=== PATIENT | male | born 1965 | race Caucasian/White ===

== ENCOUNTER 2023-08-23 09:31 | Inpatient (IN) ==
[2023-08-23 09:45] LABS: Basophils # (auto) 0.13 K/uL (0.00-0.20); Basophils % (auto) 0.9 %; Eosinophils # (auto) 0.13 K/uL (0.00-0.50); Eosinophils % (auto) 0.9 %; Hematocrit (blood only) 41.1 % (42.0-52.0); Hemoglobin 14.2 g/dl (14.0-18.0); Immature Granulocytes # (auto) 0.05 K/uL (0.01-0.20); Immature Granulocytes % (auto) 0.4 %; Lymphocytes # (auto) 3.03 K/uL (1.20-3.40); Lymphocytes % (auto) 21.4 %; Mean Corpuscular Hemoglobin 31.5 pg (25.0-34.0); Mean Corpuscular Hgb Conc 34.5 g/dL (32.0-36.0); Mean Corpuscular Volume 91.1 fL (80.0-100.0); Mean Platelet Volume 10.6 fL (9.4-12.4); Monocytes # (auto) 1.28 K/uL (0.11-0.59); Monocytes % (auto) 9.1 %; Neutrophils # (auto) 9.51 K/uL (1.40-6.50); Neutrophils % (auto) 67.3 %; Platelet Count 434 K/uL (130-400); RDW Coefficient of Variation 12.5 % (11.5-14.5); RDW Standard Deviation 41.4 fL (36.4-46.3); Red Blood Count 4.51 M/uL (4.70-6.10); White Blood Count 14.13 K/ul (4.8-10.8)
--- NOTE | 2023-08-23 09:49 | Emergency Department Note ---
Impression & Plan Chest pain, ACS (acute coronary syndrome), Non-ST elevation RI (NSTEMI) ED Provider Note HISTORY OF PRESENT ILLNESS: Patient is a 57-year-old male presenting with substernal chest pain. Patient reports that he had pain that awoke him in the middle of the night from sleep. He states that he laid on the couch and drank some water and the pain resolved. He states the pain started again while he was driving earlier today. He pulled over to the side of the road and called 911. On EMS arrival, the patient looked ashen in appearance and his EKG was negative for acute changes. Patient has a history of hypertension hyperlipidemia. He denies any anticoagulation use. Denies any history of cardiac stents. Patient was given 1 spray of nitro, 324 mg of aspirin and 4 mg of morphine prehospital with EMS. On arrival to the ER, the patient is still complaining of significant substernal chest pain. Denies any significant shortness of breath. He denies any headache or changes in vision. Denies any abdominal pain ROS: as above PHYSICAL EXAM: Constitutional: Patient appears in no acute distress. HENT: Head: Normocephalic and atraumatic. Eyes: EOMI, PERRL Mouth/Throat: Mucous membranes moist. Neck: Trachea midline. Neck supple. Cardiovascular: RRR, No murmurs, rubs or gallops. Intact distal pulses. Pulmonary/Chest: No respiratory distress. Breath sounds clear and equal bilaterally. No wheezes or rales. Abdominal: Abdomen soft, no tenderness, rebound or guarding. Musculoskeletal: No edema, tenderness or deformity noted. Skin: Warm and dry. No rash, erythema, pallor or cyanosis Psychiatric: Appropriate mood and affect for situation. Neurological: Alert and keenly responsive. CN II-XII grossly intact, moving all extremities equally and fully. MDM: - Vitals signs showed hypertension - History obtained via patient. History as above. - Chronic conditions affecting care: HTN - Differential diagnoses include, but are not limited to: Acute coronary syndrome; pulmonary embolism; dissection; tension pneumothorax; esophageal rupture; pneumonia - Order placed for continuous cardiac monitoring. At this time, monitor showed rate of 63 bpm with normal sinus rhythm, per my interpretation. - External medical records reviewed. EMS run sheet was reviewed. Patient was vitally stable and route. He was given 324 aspirin, nitro and 4 mg of Zofran prehospital. - EKG interpreted by myself showed normal sinus rhythm. Rate 60 bpm. QT 402. Noted to have some significant ST depressions in the lateral leads. - Given EKG changes and patient is still active chest pain, heart alert was called at 9:40 am. - Dr. Moran with interventional cardiology presented to patient's bedside to consent for heart cath. - CXR negative for widened mediastinum, per my interpretation. 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 - Called and updated patient's , Lora ([phone]) to let her know patient's presentation and plan for syrup machine laborer. 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 machine laborer then admit Past Med/Surg History Medical History (Updated 08/23/23 @ 11:13 by Debi Morgan MD) Chest pain HLD (hyperlipidemia) Tobacco use HTN (hypertension) Surgical History (Updated 08/23/23 @ 11:11 by MICHAEL Garcia) No pertinent past surgical history Social History Smoking Status: Current every day smoker Feels Safe at Home: Yes Results & Data (ED) Vital Signs Vital Signs - 24 hr 08/23/23 09:34 08/23/23 09:36 08/23/23 09:49 Temperature 36.5 C Temperature Source Oral Pulse Rate 66 64 Pulse Rate [Apical] Pulse Rhythm Regular Pulse Rhythm [Apical] Pulse Strength [Apical] Respiratory Rate 22 Respiratory Effort / Characteristics Respiratory Depth Respiratory Pattern Blood Pressure 169/86 H Blood Pressure [Left Arm] 156/93 H Blood Pressure Mean 113 Blood Pressure Mean [Left Arm] 114 Blood Pressure Position [Left Arm] Pulse Oximetry 98 Oxygen Delivery Method Room Air Sepsis Recent Fever Within 48 Hours No Sepsis New/Unexplained Change in Mental Status No Sepsis Action Taken by Nursing No Action Required 08/23/23 09:59 08/23/23 11:00 Temperature Temperature Source Pulse Rate 63 Pulse Rate [Apical] 91 H Pulse Rhythm Pulse Rhythm [Apical] Regular Pulse Strength [Apical] Normal Respiratory Rate 18 Respiratory Effort / Characteristics Non-Labored Spontaneous Respiratory Depth Normal Respiratory Pattern Regular Blood Pressure 156/93 H Blood Pressure [Left Arm] 173/94 H Blood Pressure Mean Blood Pressure Mean [Left Arm] 120 Blood Pressure Position [Left Arm] Lying Pulse Oximetry 98 97 Oxygen Delivery Method Room Air Room Air Sepsis Recent Fever Within 48 Hours Sepsis New/Unexplained Change in Mental Status Sepsis Action Taken by Nursing Laboratory Data 08/23/23 09:36 08/23/23 09:36 Lab Results 08/23/23 Range/Units 09:36 WBC 14.13 H (4.8-10.8) K/ul RBC 4.51 L (4.70-6.10) M/uL Hgb 14.2 (14.0-18.0) g/dl Hct 41.1 L (42.0-52.0) % MCV 91.1 (80.0-100.0) fL MCH 31.5 (25.0-34.0) pg MCHC 34.5 (32.0-36.0) g/dL RDW Std Deviation 41.4 (36.4-46.3) fL RDW Coeff of Fermín 12.5 (11.5-14.5) % Plt Count 434 H (130-400) K/uL MPV 10.6 (9.4-12.4) fL Immature Gran % (Auto) 0.4 % Neut % (Auto) 67.3 % Lymph % (Auto) 21.4 % Gregory % (Auto) 9.1 % Eos % (Auto) 0.9 % Baso % (Auto) 0.9 % Neut # (Auto) 9.51 H (1.40-6.50) K/uL Lymph # (Auto) 3.03 (1.20-3.40) K/uL Gregory # (Auto) 1.28 H (0.11-0.59) K/uL Eos # (Auto) 0.13 (0.00-0.50) K/uL Baso # (Auto) 0.13 (0.00-0.20) K/uL Immature Gran # (Auto) 0.05 (0.01-0.20) K/uL PT 11.3 (9.0-12.0) Seconds INR 1.0 (0.9-1.1) Sodium 135 L (136-145) mmol/L Potassium 3.4 L (3.5-5.1) mmol/L Chloride 101 (98-107) mmol/L Carbon Dioxide 28 (21-32) mmol/L Anion Gap 6 (3-11) BUN 6 (6-23) mg/dl Creatinine 0.73 (0.6-1.4) mg/dl Est Cr Clr Drug Dosing 116.7 ml/min Est GFR ( Amer) 120.2 ml/min Est GFR (Non-Af Amer) 103.7 ml/min BUN/Creatinine Ratio 8.2 L (10-20) Glucose 102 H (70-99(Fasting)) mg/dl Calcium 9.3 (8.6-10.3) mg/dl Magnesium 1.9 (1.7-2.4) mg/dl Total Bilirubin 0.5 (0.2-1.0) mg/dl AST 15 (13-39) U/L ALT 13 (7-52) U/L Alkaline Phosphatase 69 (34-104) U/L Troponin I High Sens 79.6 H* (0-20) pg/ml Total Protein 7.0 (6.0-8.3) gm/dl Albumin 4.3 (3.4-5.0) gm/dl Globulin 2.7 (2.5-4.0) gm/dl Albumin/Globulin Ratio 1.6 (0.9-2) Lipase 7 L (11-82) U/L Administered Medications Discontinued Medications Diphenhydramine HCl (Diphenhydramine 50 Mg/Ml Vial) Confirm Administered Dose 50 mg .ROUTE .STK-MED ONE Stop: 08/23/23 10:22 Last Admin: 08/23/23 10:50 Dose: 50 mg Documented By: VOCATIONAL NURSE Fentanyl Citrate (Fentanyl Citrate Pf 100 Mcg/2 Ml Vial) Confirm Administered Dose 100 mcg .ROUTE .STK-MED ONE Stop: 08/23/23 09:46 Last Admin: 08/23/23 10:51 Dose: 100 mcg Documented By: VOCATIONAL NURSE Fentanyl Citrate (Fentanyl Citrate Pf 100 Mcg/2 Ml Vial) Confirm Administered Dose 100 mcg .ROUTE .STK-MED ONE Stop: 08/23/23 10:14 Last Increment: 08/23/23 10:52 Dose: 25 mcg Documented By: VOCATIONAL NURSE Heparin Sodium (Porcine) (Heparin (Porcine) 1000 Unit/Ml 10 Ml (Acid Adjuster Use Only)) Confirm Administered Dose 10,000 units .ROUTE .STK-MED ONE Stop: 08/23/23 09:45 Last Admin: 08/23/23 10:51 Dose: 8,000 units Documented By: VOCATIONAL NURSE Heparin Sodium/Sodium Chloride (Heparin In Nss Infusion 1000 Unit/500 Ml (2 U/Ml) Bag) Confirm Administered Dose 3,000 units IV .STK-MED ONE Stop: 08/23/23 09:46 Last Admin: 08/23/23 10:11 Dose: 3,000 units Documented By: VOCATIONAL NURSE Ioversol (Optiray 350) Confirm Administered Dose 1 ml .ROUTE .STK-MED ONE Stop: 08/23/23 09:47 Last Admin: 08/23/23 10:50 Dose: 140 ml Documented By: VOCATIONAL NURSE Midazolam HCl (Midazolam Hcl 1 Mg/Ml 2ml Vial) Confirm Administered Dose 2 mg .ROUTE .STK-MED ONE Stop: 08/23/23 09:45 Last Admin: 08/23/23 10:51 Dose: 2 mg Documented By: VOCATIONAL NURSE Nicardipine HCl (Nicardipine Hcl Inj 2.5 Mg/Ml 10 Ml Amp) Confirm Administered Dose 25 mg .ROUTE .STK-MED ONE Stop: 08/23/23 09:46 Last Admin: 08/23/23 10:14 Dose: 25 mg Documented By: VOCATIONAL NURSE Nitroglycerin/Dextrose (Nitroglycerin/D5w 100mcg/Ml 20ml Syr) Confirm Administered Dose 2,000 mcg .ROUTE .STK-MED ONE Stop: 08/23/23 09:46 Last Admin: 08/23/23 10:14 Dose: 2,000 mcg Documented By: VOCATIONAL NURSE Ticagrelor (Ticagrelor 90 Mg Tab) Confirm Administered Dose 180 mg .ROUTE .ST- MED ONE Stop: 08/23/23 10:02 Last Admin: 08/23/23 10:14 Dose: 180 mg Documented By: VOCATIONAL NURSE Imaging Data Radiologist's Impression: Chest X-Ray 08/23/23 09:36 XR chest 1V portable CLINICAL HISTORY: Chest pain, nonspecific COMPARISON STUDY: No previous studies for comparison. FINDINGS: Lung volumes are normal. Lungs are clear. There is no pneumothorax or pleural effusion. Cardiac size is normal. Mediastinal contours are normal. There is no evidence for pulmonary edema. IMPRESSION: No acute cardiopulmonary findings. ACT 112: Negative or not required by law. Electronically signed by: Zia Montiel M.D. 08/23/2023 9:53 AM Discharge Plan Visit Data Chief Complaint: Chest Pain Stated Complaint: CHEST PAIN ED Provider: Debi Morgan Discharge Problem: Chest pain, ACS (acute coronary syndrome), Non-ST elevation RI (NSTEMI) Patient Disposition: Admitted As Inpatient Discharge Instructions Interventions: ED Discharge Assessment Last Done: 08/23/23 09:59 Forms Stand Alone Forms: [facility] Referrals Referrals: PCP,NO [Primary Care Provider] -
[2023-08-23 09:54] LABS: Prothrombin Time 11.3 Seconds (9.0-12.0)
--- NOTE | 2023-08-23 09:54 | XRay Report ---
XR chest 1V portable CLINICAL HISTORY: Chest pain, nonspecific COMPARISON STUDY: No previous studies for comparison. FINDINGS: Lung volumes are normal. Lungs are clear. There is no pneumothorax or pleural effusion. Car diac size is normal. Mediastinal contours are normal. There is no evidence for pulmonary edema. IMPRESSION: No acute cardiopulmonary findings. ACT 112: Negative or not required by law. Electronically signed by: Zia Montiel M.D. 08/23/2023 9:53 AM
--- NOTE | 2023-08-23 10:02 | Pre Anesthesia Assessment ---
Date of Service August 23, 2023 Pre Sedation Assessment Vital Signs Temp Pulse Resp BP BP Pulse Ox O2 Del Method 08/23/23 09:59 63 18 156/93 H 98 Room Air 08/23/23 09:49 156/93 H 08/23/23 09:36 64 08/23/23 09:34 97.7 F 66 22 169/86 H 98 Room Air Cardiovascular + regular rate Respiratory + respiratory effort normal Pre-Sedation Airway Assessment Smoking Status: Current every day smoker Hx Sleep Apnea: No Hx Difficult Intubation: No Short, Thick Neck: No Thyromental Distance: > or= 3.5 Finger Breadths Oral Cavity: + Dental Abnormalities Mallampati Class: III ASA: ASA3 Procedure Planning Contraindications for Sedation: none Current Medications Reviewed: Yes Notes The planned sedation has been discussed with the patient. Informed Consent was obtained. I have identified the patient, determined the appropriateness of sedation and have assessed the patient immediately prior to the procedure. All medicine(s) and interventions are by my order.
[2023-08-23 10:06] LABS: Albumin Level 4.3 gm/dl (3.4-5.0); Bilirubin,Total 0.5 mg/dl (0.2-1.0); Calcium 9.3 mg/dl (8.6-10.3); Magnesium 1.9 mg/dl (1.7-2.4); Potassium 3.4 mmol/L (3.5-5.1)
--- NOTE | 2023-08-23 10:07 | Cardiology Consultation ---
Date of Consultation August 23, 2023 Assessment & Plan (1) ACS (acute coronary syndrome): Presentation consistent with high risk ACS and recommend proceeding with urgent cardiac catheterization and likely primary PCI. No apparent contraindications to procedure. Discussed risks, benefits, alternatives of procedure with patient and they are willing to proceed. Further recommendations pending findings of coronary angiography. History of Present Illness History of Present Illness 57-year-old male here with acute chest pain and ECG concerning for ACS. Patient seen emergently in the ED after heart alert activated on arrival. Denies significant cardiac history. Does report had remote heart catheterization in [facility] in the setting of palpitations. Per patient no coronary artery disease.. Cardiac risk factors include active tobacco smoking. No other active medical issues. Patient lives in [facility]. 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 Describes substernal chest pain with associated nausea. Reports brief similar episode of chest pain in the past lasting seconds but nothing this severe or prolonged. Given nitroglycerin, aspirin, morphine chest pain remains 7 out of 10. Hemodynamically stable. ECG shows sinus rhythm with lateral T wave inversions. Family history: No premature CAD Social history: . Has a [id number]. Active smoker. Patient History Social History Smoking Status: Current every day smoker Feels Safe at Home: Yes Review of Systems Review of Systems: All systems reviewed & are unremarkable except as noted in HPI & below Physical Exam Physical Exam: General: Uncomfortable HEENT: Sclerae anicteric Lungs: Clear to auscultation bilaterally Cardiac: Regular rate and rhythm, no murmurs. Vascular: 2+ radial Abdomen: Soft, nontender Extremities: Well perfused, no peripheral edema Neuro: Nonfocal Psych: Alert orient x3, normal affect and mood Results & Data Vital Signs (Past 12 Hours) Vital Signs Temp Pulse Resp BP BP Pulse Ox O2 Del Method 08/23/23 09:59 63 18 156/93 H 98 Room Air 08/23/23 09:49 156/93 H 08/23/23 09:36 64 08/23/23 09:34 97.7 F 66 22 169/86 H 98 Room Air PG Care Time/CCT Total # of Minutes Spent Total Time Spent with Patient: Total time spent is greater than 50% in coordination of care (as documented) at patient's floor/unit and/or counseling patient: Coding Level of Care Code 26909 OFFICE CONSULT LVL 4/40M Diagnoses ACS (acute coronary syndrome) I24.9
[2023-08-23 10:12] LABS: Albumin Globulin Ratio 1.6 (0.9-2); BUN Creatinine Ratio 8.2 (10-20); Creatinine Clr Calc Pharmacy 116.7 ml/min; Est GFR (African American) 120.2 ml/min; Est GFR (Non-African American) 103.7 ml/min; Globulin 2.7 gm/dl (2.5-4.0)
[2023-08-23] MEDS: TICAGRELOR 90 MG TAB ONE (10:14)
[2023-08-23] MEDS: NITROGLYCERIN/D5W 100MCG/ML 20ML SYR ONE (10:14)
[2023-08-23] MEDS: niCARdipine HCL INJ 2.5 MG/ML 10 ML AMP ONE (10:14)
[2023-08-23 10:22] LABS: Troponin I High Sensitivity 79.6 pg/ml (0-20)
[2023-08-23] MEDS ORDERED: ONDANSETRON INJ 2 MG/ML 2 ML VIAL IV PRN (10:28)
[2023-08-23] MEDS ORDERED: POLYETHYLENE (MIRALAX) 17 GM PACK PO PRN (10:28)
[2023-08-23] MEDS ORDERED: ACETAMINOPHEN 325 MG TAB PO PRN (10:28)
[2023-08-23] MEDS ORDERED: ALUMINUM/MAGNESIUM SUSP 30 ML UDC PO PRN (10:28)
[2023-08-23] MEDS ORDERED: MAGNESIUM HYDROXIDE SUSP 30 ML UDC PO PRN (10:28)
[2023-08-23] MEDS: diphenhydrAMINE 50 MG/ML VIAL ONE (10:50)
[2023-08-23] MEDS: OPTIRAY 350 ONE (10:50)
[2023-08-23] MEDS: MIDAZOLAM HCL 1 MG/ML 2ML VIAL ONE (10:51)
[2023-08-23] MEDS: fentaNYL citrate PF 100 MCG/2 ML VIAL ONE ×2 (10:51→10:52)
[2023-08-23] MEDS: HEPARIN (PORCINE) 1000 UNIT/ML 10 ML (CATH LAB USE ONLY) ONE (10:51)
--- NOTE | 2023-08-23 11:00 | Post Anesthesia Assessment ---
Date of Service August 23, 2023 Post Sedation Assessment Vital Signs Temp Pulse Resp BP BP Pulse Ox O2 Del Method 08/23/23 09:59 63 18 156/93 H 98 Room Air 08/23/23 09:49 156/93 H 08/23/23 09:36 64 08/23/23 09:34 97.7 F 66 22 169/86 H 98 Room Air Recovery Score Activity: Moves 4 extremities Respiration: Deep Breath/Cough Circulation: +/-20% PreAnes Value Consciousness: Fully Awake Oxygen Saturation: O2 needed for >90% Discharge Sedation Level of Care: Fast Track Phase II Post Sedation Plan On clinical assessment, the patient appears to have tolerated the sedation without complications. Patient is recovering as anticipated. Patient will continue to be monitored by nursing and may be discharged when sedation discharge criteria are met per below protocol. Upon Completions of procedure up to 15 minutes continue every 5 minute vital signs and the P.A.R. score; then discharge to a Phase I or Fast Track to Phase II per the following guidelines: * Discharge Patient to appropriate Phase II area if PAR is 8 or greater or return to pre- procedure baseline. The post - procedure orders will be as directed. * If PAR score is less than 8 or not return to pre-procedure baseline then patient will follow Phase I monitoring till PAR is reached for Phase II. The Phase I may be done in procedure room or may call to secure a Phase I area. * If naloxone or flumazenil are used for reversal, hold in Phase I for continued monitoring from when last reversal dose was given for a minimum of 60 minutes or longer pending the nurse and/or physician discretion of patient condition before discharge to Phase II. Please call the Sedation Physician to re-evaluate and complete post-note for discharge to Phase II area. Do NOT discharge from procedure sedation or Phase 1 until post- sedation evaluation note is complete by procedure /sedation MD Sedation Discharge Instructions to be given to the patient at discharge to home.
--- NOTE | 2023-08-23 11:12 | History & Physical Report ---
Date of Service August 23, 2023 Assessment & Plan (1) ACS (acute coronary syndrome): (2) Chest pain: (3) HTN (hypertension): (4) Tobacco use: (5) HLD (hyperlipidemia): Plan 57 year old male that presents via EMS for complaints of chest pain. He reports that his chest pain started last night. He is reportedly from the [place] when he started to have chest pain again; prompting him to call EMS. Patient underwent Coronary Angiography and placement of a JOSE RAFAEL to the PDA distal RCA. Heart alert called upon arrival to ED. EMS gave loading ASA dose and SL Nitro [place] x1 spray with Morphine 4 mg IV. Interventional Radiology at bedside for evaluation and went to pipelines laborer at 0959. Troponin 79.6 pre pipelines laborer. Pt will be admitted to the ICU post catheterization for further evaluation and management of his diffuse CAD. Will obtain ECHO, trend troponin, heart healthy diet, smoking cessation, fasting lipid panel and A1C. Started on Brilinta. Cards will add betablocker/ACEI and high dose statin. Cardiology rehab follow up. ACS: Acute Admitted to room 104 post cath Loaded with ASA and given Nitro [place] x1 and Morphine 4 mg IV via EMS No history of CAD ECG with ST. depression Troponin 79.6; will trend post cath lab intern at 0959 under the care of Dr. Moran; stent x1 PDA Brilinta given pre cath ECHO post cath ordered Heart Healthy Diet order Fasting Lipid panel, A1C ordered Lisinopril 5 mg PO added in ICU Lipitor 80 mg PO added in ICU Cardiac rehab consult placed Hypokalemia: Acute Serum K+ 3.4; replaced with 40 KCL PO in ICU Tobacco Use: Chronic Smoking cessation recommended HLD: Chronic Fasting lipid panel ordered Disposition: PCP: Lives in [place], [place] Code Status: Full Code VTE Prophylaxis:Teds + SCDs I spent a total of 88 minutes coordinating, documenting, and providing care for this patient excluding time spent in the performance of separately billed services. All of the aforementioned completed while collaborating with the assigned attending physician for a full treatment plan. Please see their addendum for further details. History of Present Illness Chief Complaint: chest pain Primary Care Provider: LISA PCP Mr. Choi is a 57 year old male that presents via EMS for complaints of chest pain. He reports that his chest pain started last night. 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 Reported nausea as a contributing symptom. Patient underwent Coronary Angiography and placement of a JOSE RAFAEL to the PDA. PMH includes HTN and HLD. He has undergone a heart catheterization in [facility] as a result of palpitations over a decade ago, no stent was placed at that time. No known CAD. He is an active smoker. He smokes 1PPD x approximately 30 years. Denies alcohol use and recreational drug use; quit drinking three months ago. Heart alert called upon arrival to ED. EMS gave loading ASA dose and SL Nitro [place] x1 spray with Morphine 4 mg IV. Interventional Radiology at bedside for evaluation and went to pipelines laborer at 0959. CXR negative for acute cardiopulmonary disease. Troponin 79.6 pre pipelines laborer. Leukocytosis likely reactive 14. Slightly hypokalemic at 3.4. Pt will be admitted to the ICU post catheterization for further evaluation and management of his diffuse CAD. Will obtain ECHO, trend troponin, heart healthy diet, smoking cessation, fasting lipid panel and A1C. Started on Brilinta. Cards will add betablocker/ACEI and high dose statin. Cardiology rehab follow up. Allergies Allergy/AdvReac Type Severity Reaction Status Date / Time No Known Allergies Allergy Unverified 08/23/23 13:05 Home Medications Medication Instructions Recorded Confirmed Type No Known Home Medications 08/23/23 08/23/23 History Past Med/Surg History Medical History (Updated 08/23/23 @ 11:13 by Debi Morgan MD) Chest pain HLD (hyperlipidemia) Tobacco use HTN (hypertension) Surgical History (Updated 08/23/23 @ 11:11 by MICHAEL Garcia) No pertinent past surgical history Social History Smoking Status: Current every day smoker Tobacco Type: Cigarettes Cigarettes Per Day: 20; Second Hand Exposure: No; Do You Dip or Chew Tobacco: No; Tobacco Cessation Education Requested by Patient: No Hx Alcohol Use: No Hx Substance Use: No Communication Ability: Effective Director Distribution Required: No Beliefs That Will Affect Care: None Current Living Situation: Spouse Other Information That Helps Us Care for You: No Feels Safe at Home: Yes Safety Concerns: Feels Safe At This Time Assistive Devices: Glasses Review of Systems Review of Systems: Neuro: (-) Falls, trauma, slurred speech HEENT: (-) SIDDIQI, dizziness, dysphagia, visual or auditory changes CV: (-) CP, palpitations, swelling Resp: (-) SOB GI: (-) appetite changes, N/V/D, bowel changes : (-) urinary changes Skin: (-) rashes Psych: (-) anxiety, depression Physical Exam Physical Exam: Neuro: AAOx4, PERRLA, no aphagia, memory changes, CNII-XII grossly intact HEENT: head normocephalic, moist mucus membranes CV: S1/S2, (-) M/G/R, (-) edema, cap refill < 3 seconds. TR band radial approach. Resp: Lungs CTA in all bradley. On RA GI: Abdomen S/NT/ND, Ax4 bowel sounds, (-) CVA tenderness Musculoskeletal: 5/5 B/L UE strength, 5/5 B/L LE strength. No gait disturbance Skin: (-) rashes , (-) erythema. Psych: euthymic mood Results & Data Results & Data Vital Signs (Past 12 Hours) Vital Signs Temp Pulse Pulse Resp BP BP Pulse Ox 08/23/23 11:00 91 H 173/94 H 97 08/23/23 09:59 63 18 156/93 H 98 08/23/23 09:49 156/93 H 08/23/23 09:36 64 08/23/23 09:34 36.5 C 66 22 169/86 H 98 O2 Del Method 08/23/23 11:00 Room Air 08/23/23 09:59 Room Air 08/23/23 09:49 08/23/23 09:36 08/23/23 09:34 Room Air Laboratory Results Short CBC 08/23/23 Range/Units 09:36 WBC 14.13 H (4.8-10.8) K/ul Hgb 14.2 (14.0-18.0) g/dl Hct 41.1 L (42.0-52.0) % Plt Count 434 H (130-400) K/uL BMP 08/23/23 09:36 Sodium 135 L Potassium 3.4 L Chloride 101 Carbon Dioxide 28 BUN 6 Creatinine 0.73 Glucose 102 H Calcium 9.3 Liver Function 08/23/23 Range/Units 09:36 Total Bilirubin 0.5 (0.2-1.0) mg/dl AST 15 (13-39) U/L ALT 13 (7-52) U/L Alkaline Phosphatase 69 (34-104) U/L Albumin 4.3 (3.4-5.0) gm/dl Diagnostic Findings Chest X-Ray 08/23/23 09:36 XR chest 1V portable CLINICAL HISTORY: Chest pain, nonspecific COMPARISON STUDY: No previous studies for comparison. FINDINGS: Lung volumes are normal. Lungs are clear. There is no pneumothorax or pleural effusion. Cardiac size is normal. Mediastinal contours are normal. There is no evidence for pulmonary edema. IMPRESSION: No acute cardiopulmonary findings. ACT 112: Negative or not required by law. Electronically signed by: Zia Montiel M.D. 08/23/2023 9:53 AM Code Status & VTE Plan Code Status Full Code in the event of cardiac or respiratory arrest VTE Prophylaxis Plan VTE Prophylaxis will be ordered: Yes Supervising Physician Co-Signing Physician Notes I have seen and discussed the case with the collaborating advanced practitioner. I agree with the above H&P. I have reviewed and confirmed the patients medical history, the findings on physical examination, and the patients diagnosis and treatment plan with Steven RODRIGUEZ and agree with the information documented. In short, Mr. Choi is a 57 year old gentleman with pmhx notable for hypertension and HLD who presented with ACS for which [facility] alert was called on 08/22, now s/p [facility] with JOSE RAFAEL to rPDA. Patient to be monitored in ICU post stent. GENERAL APPEARANCE: AxOx4, generally gentleman no acute distress. HEENT: NC, AT. MMM. EOMI, clear conjunctiva, oropharynx clear. NECK: Supple without lymphadenopathy. No stiffness or restricted ROM. HEART: Normal rate and regular rhythm, normal S1/S1, no m/r/g LUNGS: CTAB, moving air well. No crackles or wheezes are heard. ABDOMEN: Soft, nontender, nondistended with good bowel sounds heard. BACK: No CVAT, no obvious deformity. EXTREMITIES: Without cyanosis, clubbing or edema. NEUROLOGICAL: Grossly nonfocal. Alert and oriented, moving all 4 extremities. CN not formally tested but appear grossly intact. Observed to ambulate with normal gait. Skin: Warm and dry without any rash. #Severe CAD s/p stent -Admit to ICU for continued monitoring Loaded with Brilinta in lab intern Will determine coverage with pharmacy Continue dual-antiplatelet therapy for at least 1 year. Trend troponins until peak, Check Echo Uptitrate beta-nicholas/FREDI as BP allows High-dose statin Consult cardiac Rehab Line Erector Apprentice following I spent a total of 35 minutes coordinating, documenting, and providing care for this patient excluding time spent in the performance of separately billed services. All of the aforementioned completed outside of collaborating with the assigned advanced practitioner for a full treatment plan. I have reviewed the advanced practitioner's documentation, and I agree with, and take responsibility for the plan of care
--- NOTE | 2023-08-23 11:13 | Cardiac Catheterization ---
[facility] Data: Assistant Case Manager Cardiac Status Clinical evaluation leading to the procedure CAD Presenation: STEMI Anginal Classification: CCS IV Diagnostic Physicians Name: Sha Moran MD Closure Device Recommendations: PCI without planned CABG Cardiac Cath Procedure Full Procedure Date August 23, 2023 Pre-Procedure Diagnosis Pre-Procedure Diagnosis: Acute Coronary Syndrome AUC Score AUC Score: 8 Post-Procedure Diagnosis Post-Procedure Diagnosis: Severe CAD, Successful PCI and Normal Intracardiac Pressures Procedure(s) Performed Procedure(s) Performed: Coronary Angiography, Left Heart Cath and Drug Eluting Stent Marine Fisheries Technician Sha Moran MD Teller Supervisor(s) [place] Estimated Blood Loss Estimated Blood Loss: 15 Medication(s) Medication(s): Diphenhydramine, Fentanyl, Heparin, Lidocaine 1%, Nicardipine, Nitroglycerin and Versed Medication(s): Ticagrelor Summary of Findings Indication: High risk ACS/heart Alert Access: 6 Fr right radial artery Catheters: [place], JR4 guide Findings: LM -normal caliber, no significant disease LAD -medium caliber vessel, mid segment luminal irregularities, distal vessel wraps around apex. D1 with 30% proximal stenosis. Circumflex -large caliber, 30% ostial, mid segment luminal regularities, large OM 3 without significant disease. RCA -dominant, high anterior takeoff, medium caliber, 30% diffuse mid segment disease, distal segment torturous with 100% acute latedistal occlusion into posterior AV branch. Right posterior lateral branches without significant disease. Possible occlusion of acute marginal branch. LVEDP -18 -- PCI -- Antithrombotic therapy: Heparin, ticagrelor Procedure: RCA cannulated with JR4 guide Terry Cloth Cutter Hand 50 wire passed across lesion into distal PLB Distal RCA/posterior AV branch lesion predilated with 2.0 and 2.5 compliant balloon With the aid of a telescope support catheter dilated lesion stented with 2.5 x 22 mm Neel drug-eluting stent Stent post-dilated with 2.75 noncompliant balloon Attempt made to wire into possibly acute occlusion of acute marginal but appeared to be chronic. Post procedure CHARLENE 3 flow, stent well expanded with minimal residual stenosis and no apparent cardiac complications. Arterial Closure: TR band Summary: 1. 100% acute occlusion of distal RCA into right posterior AV branch 2. Mild non-culprit coronary artery disease -30% ostial circumflex 30% proximal D1 3. Normal intracardiac filling pressure 4. Successful PCI of distal RCA into right posterior AV branch with single drug- eluting stent (2.5 x 22 mm Neel [place]: Postdilated with 2.75 NC). Recommendations: Admit to ICU for continued monitoring Loaded with ticagrelor 180 mg in Assistant Case Manager Continue dual-antiplatelet therapy for at least 1 year. Trend troponins until peak, Check Echo Uptitrate beta-nicholas/FREDI as BP allows High-dose statin Consult cardiac Rehab Hemodynamics Rest Ao:: 169/79/121 Final Ao: 152/52/103 LV: 117/18 Recommendations Recommendations: PCI without planned CABG Radiation Exposure (mGy) 2393 Contrast (mls) 140 Anesthesia Moderate 9700-5189 Procedural Complication(s) None Disposition ICU I attest to the content of the Intraoperative Record and any orders documented therein. Any exceptions are noted below. [facility] Card Cath Procedure Codes Cardiac Catheterization Procedure 1: Cardiovascular Cath Procedures: 89723 Coronaries and LHC (+/-LV) Moderate Sedation Procedure 1: Sedation/Anesthesia: 18367 Mod Sedation by the same physician;Init15 Min Child Age 5 & Up Procedure 2: Sedation/Anesthesia: 98850 Mod Sedation by the same physician; Ea [id number] Minutes Stenting Procedure 1: Cardiovascular Stent Procedures: 91896 Perc transluminal revascularization of acute sub/total occl, aMI PG Care Time/CCT Total # of Minutes Spent Total Time Spent with Patient: Total time spent is greater than 50% in coordination of care (as documented) at patient's floor/unit and/or counseling patient:
--- NOTE | 2023-08-23 13:04 | Critical Care Consultation ---
Date of Consultation August 23, 2023 Assessment & Plan (1) ACS (acute coronary syndrome): (2) Chest pain: (3) Non-ST elevation [place] (NSTEMI): (4) HTN (hypertension): (5) Tobacco use: Plan --ACS/coronary artery disease S/p 1 JOSE RAFAEL in RCA Continue with dual antiplatelet therapy Continue with statin Beta-nicholas and FREDI inhibitor has been started EKG 08/23/2023 9:36 AM: Sinus rhythm, left axis deviation T wave inversions appreciated from V1-weeks for with some ST depression on the lateral leads -- Hypertension Patient was not on any medications at home Blood pressure still on the higher side, he had an episode of bradycardia while in the ICU Will give first dose of lisinopril today and increase the dose if need be -- Current smoker > [id number] smoking history Importance of quitting explained the patient in depth Patient will benefit from outpatient PFT --Prophylaxis VTE: IPC GI: None Lines: Peripheral Diet: Cardiac Plan: Strict in and out Trend EKG and troponin Give lisinopril 5 mg first dose now and increase the dose if need be Potassium and magnesium being replaced. Follow-up phosphorus Please note the above document was generated using voice recognition software. It may contain grammatical, syntax or spelling errors.Any formal questions or concerns about the content, text or information contained within the body of this dictation should be directly addressed to the provider for clarification. History of Present Illness Attending Physician: Latia Martel MD History of Present Illness 57-year-old male brought into the hospital with complaints of chest pain Past medical history: Hypertension but not taking medications at home, active smoker Heart alert was called in the ER and patient was taken to Installment Loan Collector. Patient was transferred to the ICU for postcardiac cath care. Time of examination patient systolic blood pressure was in the high 70s. Heart rate in the mid to high 70s. He was not complaining of any chest pain. Denied any nausea or vomiting No headache, no blurry vision When he did get the chest pain it was retrosternal and it was radiating to the right arm. He did not have any issues like this in the past. Social history: Approximately [id number]-[id number] smoking history, currently smoking a pack a day. No alcohol. Denies any illicit drug use. 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 No exposure to any chemicals or fumes Allergies Allergy/AdvReac Type Severity Reaction Status Date / Time No Known Allergies Allergy Unverified 08/23/23 13:05 Patient History Medical History (Updated 08/23/23 @ 11:13 by Debi Morgan MD) Chest pain HLD (hyperlipidemia) Tobacco use HTN (hypertension) Surgical History (Updated 08/23/23 @ 11:11 by MICHAEL Garcia) No pertinent past surgical history Social History Smoking Status: Current every day smoker Feels Safe at Home: Yes Review of Systems 2 Review of Systems: All systems reviewed & are unremarkable except as noted in HPI & below Physical Exam 2 Physical Exam: Constitutional: No acute distress HEENT: EOMI, PERRLA Respiratory system: Good air entry bilaterally, no wheeze, no rhonchi, no crackles CVS: S1-S2 positive, no murmurs or gallops Abdomen: Soft, nontender, nondistended, positive bowel sounds x4 Extremities: +2 pulses bilaterally radialis/ dorsalis pedis, no cyanosis, no edema Neuro: Awake alert oriented x3 Psych: Normal mood and affect G/U: No Win Skin: no rashes, warm and dry Lymphatic: no cervical or axillary lymphadenopathy Results & Data Results & Data Vital Signs (Past 12 Hours) Vital Signs Temp Pulse Pulse Resp BP BP Pulse Ox 08/23/23 11:00 91 H 173/94 H 97 08/23/23 09:59 63 18 156/93 H 98 08/23/23 09:49 156/93 H 08/23/23 09:36 64 08/23/23 09:34 36.5 C 66 22 169/86 H 98 O2 Del Method 08/23/23 11:00 Room Air 08/23/23 09:59 Room Air 08/23/23 09:49 08/23/23 09:36 08/23/23 09:34 Room Air Laboratory Results 08/23/23 09:36 08/23/23 09:36 Coding Level of Care Code 88031 IN/OBS CONSULT LVL 5,80M Diagnoses ACS (acute coronary syndrome) I24.9 Chest pain R07.9 Non-ST elevation [place] (NSTEMI) I21.4 HTN (hypertension) I10 Tobacco use Z72.0
[2023-08-23] MEDS: ATROPINE SULFATE 0.1 MG/ML 10ML SYR IV ONE (13:05)
[2023-08-23] MEDS: Patient's ALLERGY Info needs ENTERED SCH (13:07)
[2023-08-23] MEDS: Patient's ALLERGY Info needs ENTERED STA (13:07)
--- NOTE | 2023-08-23 13:17 | Electrocardiogram Report ---
Test Reason : Blood Pressure : / mmHG Vent. Rate : 060 BPM Atrial Rate : 060 BPM P-R Int : 150 ms QRS Dur : 092 ms QT Int : 402 ms P-R-T Axes : 067 -30 095 degrees QTc Int : 402 ms Normal sinus rhythm with sinus arrhythmia Left axis deviation Septal infarct , age undetermined Abnormal ECG No previous ECGs available Confirmed by Alfonso Rush ([id number]) on 08/23/2023 1:16:52 PM Referred By: Confirmed By:Alfonso Rush
--- NOTE | 2023-08-23 13:17 | Electrocardiogram Report ---
Test Reason : Blood Pressure : / mmHG Vent. Rate : 066 BPM Atrial Rate : 066 BPM P-R Int : 152 ms QRS Dur : 094 ms QT Int : 426 ms P-R-T Axes : 070 -16 097 degrees QTc Int : 446 ms Normal sinus rhythm Septal infarct (cited on or before 23-AUG-2023) Abnormal ECG When compared with ECG of 23-AUG-2023 09:36, (unconfirmed) No significant change Confirmed by Alfonso Rush ([id number]) on 08/23/2023 1:17:15 PM Referred By: Confirmed By:Alfonso Rush
--- NOTE | 2023-08-23 13:18 | Electrocardiogram Report ---
Test Reason : Blood Pressure : / mmHG Vent. Rate : 063 BPM Atrial Rate : 063 BPM P-R Int : 158 ms QRS Dur : 092 ms QT Int : 430 ms P-R-T Axes : 069 -27 092 degrees QTc Int : 440 ms Sinus rhythm with marked sinus arrhythmia Anteroseptal infarct (cited on or before 23-AUG-2023) Abnormal ECG When compared with ECG of 23-AUG-2023 09:44, (unconfirmed) No significant change Confirmed by Alfonso Rush ([id number]) on 08/23/2023 1:17:46 PM Referred By: Confirmed By:Alfonso Rush
--- NOTE | 2023-08-23 13:19 | Electrocardiogram Report ---
Test Reason : Blood Pressure : / mmHG Vent. Rate : 091 BPM Atrial Rate : 091 BPM P-R Int : 154 ms QRS Dur : 086 ms QT Int : 376 ms P-R-T Axes : 073 -55 064 degrees QTc Int : 462 ms Normal sinus rhythm Left anterior fascicular block Septal infarct (cited on or before 23-AUG-2023) Abnormal ECG When compared with ECG of 23-AUG-2023 09:51, (unconfirmed) Serial changes of evolving Septal infarct Present Confirmed by Alfonso Rush ([id number]) on 08/23/2023 1:19:32 PM Referred By: Confirmed By:Alfonso Rush
[2023-08-23] MEDS: SODIUM CHLORIDE 0.9% 1,000 ML IV SCH (13:20)
[2023-08-23] MEDS: lisinopril 5 MG TAB PO ONE (13:20)
[2023-08-23] MEDS: POTASSIUM CHLORIDE CRTAB 20 MEQ TABCR PO STA (13:20)
[2023-08-23] MEDS: MAGNESIUM SULFATE / D5W 1 GM/100 ML BAG IV ONE (13:20)
[2023-08-23] MEDS: lisinopril 10 MG TAB PO ONE (14:52)
[2023-08-23] MEDS: SODIUM CHLORIDE 0.65% NA SOLN 45 ML (OCEAN) ONE ×2 (15:31→16:50)
--- NOTE | 2023-08-23 16:23 | XCELERA ---
[id number] \\[id number]
[2023-08-23 17:14] LABS: Appearance Urine Clear (Clear); Bilirubin Urine Negative (Negative); Blood Urine Negative (Negative); Color Urine Yellow; Glucose Urine UA Negative (Negative); Ketones Urine Negative (Negative); Leukocyte Esterase Urine Negative (Negative); Nitrite Urine Negative (Negative); Protein Urine Negative (Negative); Specific Gravity Urine 1.017 (1.000-1.030); Urobilinogen Urine Negative (Negative)
[2023-08-23] MEDS: METOPROLOL TARTRATE 25 MG TAB PO SCH (20:15)
[2023-08-24 04:49] LABS: Hematocrit (blood only) 36.9 % (42.0-52.0); Hemoglobin 12.9 g/dl (14.0-18.0); Mean Corpuscular Hemoglobin 31.8 pg (25.0-34.0); Mean Corpuscular Volume 90.9 fL (80.0-100.0); Platelet Count 346 K/uL (130-400); RDW Coefficient of Variation 12.6 % (11.5-14.5); RDW Standard Deviation 41.6 fL (36.4-46.3); Red Blood Count 4.06 M/uL (4.70-6.10); White Blood Count 9.98 K/ul (4.8-10.8)
[2023-08-24 05:14] LABS: Albumin Globulin Ratio 1.5 (0.9-2); Albumin Level 3.6 gm/dl (3.4-5.0); BUN Creatinine Ratio 8.2 (10-20); Bilirubin,Total 0.5 mg/dl (0.2-1.0); Calcium 8.9 mg/dl (8.6-10.3); Chol HDL Ratio 3.9 (0-5); Creatinine Clr Calc Pharmacy 96.5 ml/min; Est GFR (African American) 112.9 ml/min; Est GFR (Non-African American) 97.4 ml/min; Globulin 2.4 gm/dl (2.5-4.0); Magnesium 1.8 mg/dl (1.7-2.4); Potassium 4.1 mmol/L (3.5-5.1)
[2023-08-24 05:21] LABS: INR 1.1 (0.9-1.1); Prothrombin Time 11.6 Seconds (9.0-12.0)
[2023-08-24] MEDS: MAGNESIUM SULFATE / D5W 1 GM/100 ML BAG IV SCH (05:35)
[2023-08-24 07:37] LABS: Estimated Average Glucose 105 mg/dl; Hemoglobin A1C 5.3 % (4.5-5.6)
--- NOTE | 2023-08-24 07:49 | Critical Care Progress Note ---
Date of Service August 24, 2023 Assessment & Plan (1) ACS (acute coronary syndrome): (2) Chest pain: (3) Non-ST elevation [place] (NSTEMI): (4) HTN (hypertension): (5) Tobacco use: Plan --ACS/coronary artery disease S/p 1 JOSE RAFAEL in RCA 08/23/2023 Continue with dual antiplatelet therapy Continue with statin Beta-nicholas and FREDI inhibitor has been started EKG 08/23/2023 9:36 AM: Sinus rhythm, left axis deviation T wave inversions appreciated from V1-weeks for with some ST depression on the lateral leads 2D echo 08/23/2023: EF 55-60%, inferior lateral hypokinesis, normal RV size and function, PASP 40 -- Hypertension Patient was not on any medications at home Blood pressure still on the higher side, he had an episode of bradycardia while in the ICU -- Current smoker > 55-stpl-haor smoking history Importance of quitting explained the patient in depth Patient will benefit from outpatient PFT --Prophylaxis VTE: IPC GI: None Lines: Peripheral Diet: Cardiac Plan: Troponin trending down Increase lisinopril to 20 mg on a daily basis. Patient got total of 15 mg yesterday Continue metoprolol 12.5 mg given the episodic bradycardia Magnesium being replaced Okay to downgrade from ICU Please note the above document was generated using voice recognition software. It may contain grammatical, syntax or spelling errors.Any formal questions or concerns about the content, text or information contained within the body of this dictation should be directly addressed to the provider for clarification. Admission and Anticipated Discharge Date Admission Date: August 23, 2023 Subjective Patient seen and examined at bedside. No acute distress, no adverse events overnight. Denies any chest pain. No headache, no dizziness No nausea vomiting Fair appetite. Has been complaining of nasal congestion lately. Review of Systems 2 Review of Systems: All systems reviewed & are unremarkable except as noted in Subjective Physical Exam 2 Physical Exam: Constitutional: No acute distress HEENT: EOMI, PERRLA Respiratory system: Good air entry bilaterally, no wheeze, no rhonchi, no crackles CVS: S1-S2 positive, no murmurs or gallops Abdomen: Soft, nontender, nondistended, positive bowel sounds x4 Extremities: +2 pulses bilaterally radialis/ dorsalis pedis, no cyanosis, no edema Neuro: Awake alert oriented x3 Psych: Normal mood and affect G/U: No Win Skin: no rashes, warm and dry Lymphatic: no cervical or axillary lymphadenopathy Results & Data Results & Data Vital Signs (Past 12 Hours) Vital Signs Pulse Resp BP Pulse Ox O2 Del Method 08/24/23 05:00 58 L 21 97 Room Air 08/24/23 05:00 149/96 H 08/24/23 04:30 62 21 95 08/24/23 04:30 140/80 Room Air 08/24/23 04:00 59 L 08/24/23 04:00 64 14 94 Room Air 08/24/23 04:00 149/77 H 08/24/23 03:30 60 12 93 Room Air 08/24/23 03:30 134/67 08/24/23 03:00 61 13 93 Room Air 08/24/23 03:00 143/76 H 08/24/23 02:30 59 L 12 94 08/24/23 02:30 141/79 H 08/24/23 02:00 63 12 95 Room Air 08/24/23 02:00 156/77 H 08/24/23 01:30 60 12 95 08/24/23 01:30 149/81 H 08/24/23 01:00 65 16 96 Room Air 08/24/23 01:00 164/80 H 08/24/23 00:30 61 12 96 08/24/23 00:30 157/87 H Room Air 08/24/23 00:00 67 14 95 Room Air 08/24/23 00:00 150/87 H 08/24/23 00:00 63 08/23/23 23:30 67 12 96 Room Air 08/23/23 23:30 161/88 H 08/23/23 23:00 153/82 H Room Air 08/23/23 23:00 65 12 94 08/23/23 22:30 67 15 94 08/23/23 22:30 153/83 H 08/23/23 22:00 63 17 94 Room Air 08/23/23 22:00 152/91 H 08/23/23 21:30 163/82 H 08/23/23 21:30 64 14 96 08/23/23 21:00 71 10 L 94 08/23/23 21:00 153/82 H 08/23/23 20:30 70 12 96 08/23/23 20:30 164/89 H 08/23/23 20:30 Room Air 08/23/23 20:00 154/88 H 08/23/23 20:00 63 24 96 08/23/23 19:49 64 Laboratory Results 08/24/23 04:01 08/24/23 04:01 Coding Level of Care Code 68930 SUB INP/OBS CARE 2/35MIN Diagnoses ACS (acute coronary syndrome) I24.9 Chest pain R07.9 Non-ST elevation [place] (NSTEMI) I21.4 HTN (hypertension) I10 Tobacco use Z72.0
[2023-08-24] MEDS: ATORVASTATIN 40 MG TAB PO SCH (08:09)
[2023-08-24] MEDS: TICAGRELOR 90 MG TAB PO SCH (08:09)
[2023-08-24] MEDS: ASPIRIN 81 MG ECTAB PO SCH (08:11)
[2023-08-24] MEDS ORDERED: lisinopril 5 MG TAB PO SCH (09:00)
[2023-08-24] MEDS: lisinopril 20 MG TAB PO SCH (09:26)
--- NOTE | 2023-08-24 10:00 | Hospitalist Progress Note ---
Date of Service August 24, 2023 Assessment & Plan (1) ACS (acute coronary syndrome): (2) Chest pain: (3) HTN (hypertension): (4) Tobacco use: (5) HLD (hyperlipidemia): Plan 57 yo M that presents via EMS for complaints of chest pain. Patient underwent Coronary Angiography and placement of a JOSE RAFAEL to the PDA distal RCA. Heart alert called upon arrival to ED. EMS gave loading ASA dose and SL Nitro [place] x1 spray with Morphine 4 mg IV. Pt was admitted to the ICU post catheterization for further evaluation and management of his diffuse CAD. ACS: S/p Successful PCI of distal RCA into right posterior AV branch with single drug-eluting stent (2.5 x 22 mm [place] CA: Postdilated with 2.75 NC) w/ Dr. Moran ECHO post cath -normal LV size, mild concentric LVH. LVEF 55 to 60%. Mild basal inferior, inferolateral hypokinesis. Normal LV size and function. Mild mitral regurg. Trace aortic regurg. Mild pulmonary hypertension, no prior studies for comparison. Cont. ASA, Brillinta - for at least 1 year, high dose statin, metoprolol, lisinopril LDL 108 Hgb A1c 5.3% Cardiology - Dr. Moran consulted for further recommendations Cardiac rehab consult after DC Hypokalemia: replace and monitor Tobacco Use: Chronic Smoking cessation recommended HLD: Chronic Fasting lipid panel ordered, as above Disposition: PCP: Lives in [place], [place] Code Status: Full Code VTE Prophylaxis:Teds + SCDs Admission and Anticipated Discharge Date Admission Date: August 23, 2023 Subjective Pt seen in follow up of ACS for which CODE HEART alert was called on 08/22, now s/p C with JOSE RAFAEL to rPDA. Pt sitting up in bed in NAD Reports feeling well, denies any chest pain, shortness of breath, dizziness, lightheadedness Denies any nausea, abd. pain Discussed with Dr. Moran - he will be seeing the pt later today Review of Systems Review of Systems: All systems reviewed & are unremarkable except as noted in Subjective Physical Exam Physical Exam: GENERAL APPEARANCE: WD/WN M in no acute distress. HEENT: NC, AT. MMM. EOMI, clear conjunctiva NECK: Supple HEART: Normal rate and regular rhythm, normal S1/S1, no m/r/g LUNGS: CTAB No crackles or wheezes are heard. ABDOMEN: Soft, nontender, nondistended with + bowel sounds EXTREMITIES: No LE edema, moves extremities. NEUROLOGICAL: Awake, alert and oriented, moving all 4 extremities. answers appropriately, no facial asymmetry, speech fluent Skin: Warm and dry Results & Data Results & Data Vital Signs (Past 12 Hours) Vital Signs Temp Pulse Resp BP Pulse Ox O2 Del Method 08/24/23 09:39 36.8 C 08/24/23 09:30 143/80 H 08/24/23 09:30 66 24 94 08/24/23 09:00 66 12 95 08/24/23 09:00 159/86 H 08/24/23 08:30 149/82 H 08/24/23 08:30 64 18 96 08/24/23 08:00 140/79 08/24/23 08:00 70 15 95 08/24/23 08:00 65 08/24/23 07:30 77 18 94 08/24/23 07:30 162/86 H 08/24/23 07:00 67 13 97 08/24/23 07:00 150/83 H 08/24/23 05:00 58 L 21 97 Room Air 08/24/23 05:00 149/96 H 08/24/23 04:30 62 21 95 08/24/23 04:30 140/80 Room Air 08/24/23 04:00 59 L 08/24/23 04:00 64 14 94 Room Air 08/24/23 04:00 149/77 H 08/24/23 03:30 60 12 93 Room Air 08/24/23 03:30 134/67 08/24/23 03:00 61 13 93 Room Air 08/24/23 03:00 143/76 H 08/24/23 02:30 59 L 12 94 08/24/23 02:30 141/79 H 08/24/23 02:00 63 12 95 Room Air 08/24/23 02:00 156/77 H 08/24/23 01:30 60 12 95 08/24/23 01:30 149/81 H 08/24/23 01:00 65 16 96 Room Air 08/24/23 01:00 164/80 H 08/24/23 00:30 61 12 96 08/24/23 00:30 157/87 H Room Air 08/24/23 00:00 67 14 95 Room Air 08/24/23 00:00 150/87 H 08/24/23 00:00 63 08/23/23 23:30 67 12 96 Room Air 08/23/23 23:30 161/88 H 08/23/23 23:00 153/82 H Room Air 08/23/23 23:00 65 12 94 08/23/23 22:30 67 15 94 08/23/23 22:30 153/83 H 08/23/23 22:00 63 17 94 Room Air 08/23/23 22:00 152/91 H Laboratory Results 08/24/23 08/24/23 08/23/23 Range/Units 04:01 00:34 18:52 WBC 9.98 (4.8-10.8) K/ul RBC 4.06 L (4.70-6.10) M/uL Hgb 12.9 L (14.0-18.0) g/dl Hct 36.9 L (42.0-52.0) % MCV 90.9 (80.0-100.0) fL MCH 31.8 (25.0-34.0) pg MCHC 35.0 (32.0-36.0) g/dL RDW Std Deviation 41.6 (36.4-46.3) fL RDW Coeff of [place] 12.6 (11.5-14.5) % Plt Count 346 (130-400) K/uL MPV 10.0 (9.4-12.4) fL PT 11.6 (9.0-12.0) Seconds INR 1.1 (0.9-1.1) Activ Coag Time Kaolin (94-140) SECONDS Sodium 136 (136-145) mmol/L Potassium 4.1 D (3.5-5.1) mmol/L Chloride 106 (98-107) mmol/L Carbon Dioxide 25 (21-32) mmol/L Anion Gap 5 (3-11) BUN 7 (6-23) mg/dl Creatinine 0.85 (0.6-1.4) mg/dl Est Cr Clr Drug Dosing 96.5 ml/min Est GFR ( Amer) 112.9 ml/min Est GFR (Non-Af Amer) 97.4 ml/min BUN/Creatinine Ratio 8.2 L (10-20) Glucose 100 H (70-99(Fasting)) mg/dl Estimat Average Glucose 105 mg/dl Hemoglobin A1c 5.3 (4.5-5.6) % Calcium 8.9 (8.6-10.3) mg/dl Phosphorus (2.5-4.9) mg/dl Magnesium 1.8 (1.7-2.4) mg/dl Total Bilirubin 0.5 (0.2-1.0) mg/dl AST 43 H (13-39) U/L ALT 16 (7-52) U/L Alkaline Phosphatase 58 (34-104) U/L Troponin I High Sens 92399.0 H* D 61044.8 H* D (0-20) pg/ml Total Protein 6.0 (6.0-8.3) gm/dl Albumin 3.6 (3.4-5.0) gm/dl Globulin 2.4 L (2.5-4.0) gm/dl Albumin/Globulin Ratio 1.5 (0.9-2) Triglycerides 73 (0-150) mg/dl Cholesterol 166 (0-200) mg/dl LDL Cholesterol, Calc 108 mg/dl VLDL Cholesterol, Calc 15 (0-30) mg/dl HDL Cholesterol 43 mg/dl Cholesterol/HDL Ratio 3.9 (0-5) Lipase (11-82) U/L Urine Color Urine Appearance (Clear) Urine pH (4.5-7.5) Ur Specific [place] (1.000-1.030) Urine Protein (Negative) Urine Glucose (UA) (Negative) Urine Ketones (Negative) Urine Blood (Negative) Urine Nitrite (Negative) Urine Bilirubin (Negative) Urine Urobilinogen (Negative) Ur Leukocyte Esterase (Negative) Nasal Screen MRSA (PCR) (Negative) 08/23/23 08/23/23 08/23/23 Range/Units 17:00 13:00 12:31 WBC (4.8-10.8) K/ul RBC (4.70-6.10) M/uL Hgb (14.0-18.0) g/dl Hct (42.0-52.0) % MCV (80.0-100.0) fL MCH (25.0-34.0) pg MCHC (32.0-36.0) g/dL RDW Std Deviation (36.4-46.3) fL RDW Coeff of [place] (11.5-14.5) % Plt Count (130-400) K/uL MPV (9.4-12.4) fL PT (9.0-12.0) Seconds INR (0.9-1.1) Activ Coag Time Kaolin (94-140) SECONDS Sodium (136-145) mmol/L Potassium (3.5-5.1) mmol/L Chloride (98-107) mmol/L Carbon Dioxide (21-32) mmol/L Anion Gap (3-11) BUN (6-23) mg/dl Creatinine (0.6-1.4) mg/dl Est Cr Clr Drug Dosing ml/min Est GFR ( Amer) ml/min Est GFR (Non-Af Amer) ml/min BUN/Creatinine Ratio (10-20) Glucose (70-99(Fasting)) mg/dl Estimat Average Glucose mg/dl Hemoglobin A1c (4.5-5.6) % Calcium (8.6-10.3) mg/dl Phosphorus 3.5 (2.5-4.9) mg/dl Magnesium (1.7-2.4) mg/dl Total Bilirubin (0.2-1.0) mg/dl AST (13-39) U/L ALT (7-52) U/L Alkaline Phosphatase (34-104) U/L Troponin I High Sens 7950.2 H* D (0-20) pg/ml Total Protein (6.0-8.3) gm/dl Albumin (3.4-5.0) gm/dl Globulin (2.5-4.0) gm/dl Albumin/Globulin Ratio (0.9-2) Triglycerides (0-150) mg/dl Cholesterol (0-200) mg/dl LDL Cholesterol, Calc mg/dl VLDL Cholesterol, Calc (0-30) mg/dl HDL Cholesterol mg/dl Cholesterol/HDL Ratio (0-5) Lipase (11-82) U/L Urine Color Yellow Urine Appearance Clear (Clear) Urine pH 7.0 (4.5-7.5) Ur Specific [place] 1.017 (1.000-1.030) Urine Protein Negative (Negative) Urine Glucose (UA) Negative (Negative) Urine Ketones Negative (Negative) Urine Blood Negative (Negative) Urine Nitrite Negative (Negative) Urine Bilirubin Negative (Negative) Urine Urobilinogen Negative (Negative) Ur Leukocyte Esterase Negative (Negative) Nasal Screen MRSA (PCR) Negative (Negative) 08/23/23 08/23/23 Range/Units 10:31 09:36 WBC (4.8-10.8) K/ul RBC (4.70-6.10) M/uL Hgb (14.0-18.0) g/dl Hct (42.0-52.0) % MCV (80.0-100.0) fL MCH (25.0-34.0) pg MCHC (32.0-36.0) g/dL RDW Std Deviation (36.4-46.3) fL RDW Coeff of [place] (11.5-14.5) % Plt Count (130-400) K/uL MPV (9.4-12.4) fL PT 11.3 (9.0-12.0) Seconds INR 1.0 (0.9-1.1) Activ Coag Time Kaolin 277 H (94-140) SECONDS Sodium 135 L (136-145) mmol/L Potassium 3.4 L (3.5-5.1) mmol/L Chloride 101 (98-107) mmol/L Carbon Dioxide 28 (21-32) mmol/L Anion Gap 6 (3-11) BUN 6 (6-23) mg/dl Creatinine 0.73 (0.6-1.4) mg/dl Est Cr Clr Drug Dosing 116.7 ml/min Est GFR ( Amer) 120.2 ml/min Est GFR (Non-Af Amer) 103.7 ml/min BUN/Creatinine Ratio 8.2 L (10-20) Glucose 102 H (70-99(Fasting)) mg/dl Estimat Average Glucose mg/dl Hemoglobin A1c (4.5-5.6) % Calcium 9.3 (8.6-10.3) mg/dl Phosphorus (2.5-4.9) mg/dl Magnesium 1.9 (1.7-2.4) mg/dl Total Bilirubin 0.5 (0.2-1.0) mg/dl AST 15 (13-39) U/L ALT 13 (7-52) U/L Alkaline Phosphatase 69 (34-104) U/L Troponin I High Sens 79.6 H* (0-20) pg/ml Total Protein 7.0 (6.0-8.3) gm/dl Albumin 4.3 (3.4-5.0) gm/dl Globulin 2.7 (2.5-4.0) gm/dl Albumin/Globulin Ratio 1.6 (0.9-2) Triglycerides (0-150) mg/dl Cholesterol (0-200) mg/dl LDL Cholesterol, Calc mg/dl VLDL Cholesterol, Calc (0-30) mg/dl HDL Cholesterol mg/dl Cholesterol/HDL Ratio (0-5) Lipase 7 L (11-82) U/L Urine Color Urine Appearance (Clear) Urine pH (4.5-7.5) Ur Specific [place] (1.000-1.030) Urine Protein (Negative) Urine Glucose (UA) (Negative) Urine Ketones (Negative) Urine Blood (Negative) Urine Nitrite (Negative) Urine Bilirubin (Negative) Urine Urobilinogen (Negative) Ur Leukocyte Esterase (Negative) Nasal Screen MRSA (PCR) (Negative) Medications Administered Current Inpatient Medications Acetaminophen (Acetaminophen 325 Mg Tab) 650 mg PO Q4H PRN PRN Reason: Pain or Fever Stop: 09/22/23 10:27 Al Hydrox/Mg Hydrox/Simethicone (Aluminum/Magnesium Susp 30 Ml Udc) 15 ml PO Q4H PRN PRN Reason: Dyspepsia Stop: 09/22/23 10:27 Aspirin (Aspirin 81 Mg Ectab) 81 mg PO [facility] Stop: 09/23/23 08:59 Last Admin: 08/24/23 08:11 Dose: 81 mg Atorvastatin Calcium (Atorvastatin 40 Mg Tab) [facility] [place] Stop: 09/23/23 08:59 Last Admin: 08/24/23 08:09 Dose: 80 mg Lisinopril (Lisinopril 20 Mg Tab) 20 [facility] [place] Stop: 09/23/23 08:59 Last Admin: 08/24/23 09:26 Dose: 20 mg Magnesium Hydroxide (Magnesium Hydroxide Susp 30 Ml Udc) 30 ml PO Q12H PRN PRN Reason: Constipation Stop: 09/22/23 10:27 Metoprolol Tartrate (Metoprolol Tartrate 25 Mg Tab) 12.5 mg PO BID [facility] Stop: 09/22/23 20:59 Last Admin: 08/24/23 08:10 Dose: 12.5 mg Ondansetron HCl (Ondansetron Inj 2 Mg/Ml 2 Ml Vial) 4 mg IV Q6H PRN PRN Reason: Nausea Stop: 09/22/23 10:27 Polyethylene Glycol (Polyethylene (Miralax) 17 Gm Pack) 17 gm PO DAILY PRN PRN Reason: Constipation Stop: 09/22/23 10:27 Ticagrelor (Ticagrelor 90 Mg Tab) 90 mg PO BID [facility] Stop: 09/23/23 08:59 Last Admin: 08/24/23 08:09 Dose: 90 mg
--- NOTE | 2023-08-24 15:38 | Cardiology Progress Note ---
Date of Service August 24, 2023 Assessment & Plan (1) ACS (acute coronary syndrome): Plan: Postprocedure day 1 following JOSE RAFAEL to distal RCA into rPAV No significant nonculprit artery disease 2. Preserved LV function 3. Mild MR, trace AI 4. Hypertension 5. Dyslipidemia 6. Smoker 7. Nonsustained VT Doing well from a cardiac standpoint. Chest pain-free. Troponin has peaked. Preserved LV function on echo. No signs of heart failure on exam. No access site complications. 1 episode of NSVT overnight Blood pressure remains above goal. Continue DAPT with aspirin, ticagrelor Increase metoprolol to 25 mg twice daily Continue current lisinopril 20 mg daily Continue current atorvastatin Discussed importance of smoking cessation. From a cardiac standpoint if stable overnight okay with discharge tomorrow morning. Appreciate ICU and hospital medicine care. Admission and Anticipated Discharge Date Admission Date: August 23, 2023 Subjective Feeling well this afternoon. Denies any chest pain. No palpitations. No new concerns. Telemetry reviewed1 episode of nonsustained VT, ~10 beats overnight. Review of Systems Review of Systems: All systems reviewed & are unremarkable except as noted in HPI & below Physical Exam Physical Exam: General: Comfortable HEENT: Sclerae anicteric Lungs: Clear to auscultation bilaterally Cardiac: Regular rate and rhythm, no murmurs. Vascular: Right radial artery access site with no ecchymosis, hematoma. Distal pulse and sensation intact. Abdomen: Soft, nontender Extremities: Well perfused, no peripheral edema Neuro: Nonfocal Psych: Alert orient x3, normal affect and mood Results & Data Vital Signs (Past 12 Hours) Vital Signs Temp Pulse Pulse Resp BP BP Pulse Ox 08/24/23 13:19 97.9 F 63 16 160/75 H 97 08/24/23 12:07 98.1 F 08/24/23 12:00 71 20 94 08/24/23 12:00 153/97 H 08/24/23 11:31 152/83 H 08/24/23 11:31 74 19 99 08/24/23 11:30 64 14 97 08/24/23 11:00 141/84 H 08/24/23 11:00 57 L 9 L 96 08/24/23 10:30 139/79 08/24/23 10:30 59 L 12 96 08/24/23 10:00 151/87 H 08/24/23 10:00 68 17 96 08/24/23 09:39 98.2 F 08/24/23 09:30 143/80 H 08/24/23 09:30 66 24 94 08/24/23 09:00 66 12 95 08/24/23 09:00 159/86 H 08/24/23 08:30 149/82 H 08/24/23 08:30 64 18 96 08/24/23 08:12 98.4 F 08/24/23 08:00 140/79 08/24/23 08:00 70 15 95 08/24/23 08:00 65 08/24/23 07:30 77 18 94 08/24/23 07:30 162/86 H 08/24/23 07:00 67 13 97 08/24/23 07:00 150/83 H 08/24/23 05:00 58 L 21 97 08/24/23 05:00 149/96 H 08/24/23 04:30 62 21 95 08/24/23 04:30 140/80 08/24/23 04:00 59 L 08/24/23 04:00 64 14 94 08/24/23 04:00 149/77 H O2 Del Method 08/24/23 13:19 Room Air 08/24/23 12:07 08/24/23 12:00 08/24/23 12:00 08/24/23 11:31 08/24/23 11:31 08/24/23 11:30 08/24/23 11:00 08/24/23 11:00 08/24/23 10:30 08/24/23 10:30 08/24/23 10:00 08/24/23 10:00 08/24/23 09:39 08/24/23 09:30 08/24/23 09:30 08/24/23 09:00 08/24/23 09:00 08/24/23 08:30 08/24/23 08:30 08/24/23 08:12 08/24/23 08:00 08/24/23 08:00 08/24/23 08:00 08/24/23 07:30 08/24/23 07:30 08/24/23 07:00 08/24/23 07:00 08/24/23 05:00 Room Air 08/24/23 05:00 08/24/23 04:30 08/24/23 04:30 Room Air 08/24/23 04:00 08/24/23 04:00 Room Air 08/24/23 04:00 PG Care Time/CCT Total # of Minutes Spent Total Time Spent with Patient: Total time spent is greater than 50% in coordination of care (as documented) at patient's floor/unit and/or counseling patient: Coding Level of Care Code 16536 SUB INP/OBS CARE 3/50MIN Diagnoses ACS (acute coronary syndrome) I24.9
--- NOTE | 2023-08-24 16:18 | Electrocardiogram Report ---
Test Reason : Blood Pressure : / mmHG Vent. Rate : 063 BPM Atrial Rate : 063 BPM P-R Int : 144 ms QRS Dur : 092 ms QT Int : 420 ms P-R-T Axes : 074 -35 -11 degrees QTc Int : 429 ms Normal sinus rhythm Left axis deviation Poor R wave progression, consider anterior NM vs. lead placement vs. LVH Abnormal ECG When compared with ECG of 23-AUG-2023 11:02, No significant change Confirmed by Alfonso Rush ([id number]) on 08/24/2023 4:17:55 PM Referred By: REFERRED SELF Confirmed By:Alfonso Rush
[2023-08-24] MEDS: METOPROLOL TARTRATE 25 MG TAB PO SCH (20:29)
[2023-08-25 07:47] LABS: Hematocrit (blood only) 37.6 % (42.0-52.0); Hemoglobin 13.1 g/dl (14.0-18.0); Mean Corpuscular Hemoglobin 31.6 pg (25.0-34.0); Mean Corpuscular Hgb Conc 34.8 g/dL (32.0-36.0); Mean Corpuscular Volume 90.8 fL (80.0-100.0); Mean Platelet Volume 10.2 fL (9.4-12.4); Platelet Count 343 K/uL (130-400); RDW Coefficient of Variation 12.6 % (11.5-14.5); RDW Standard Deviation 41.9 fL (36.4-46.3); Red Blood Count 4.14 M/uL (4.70-6.10); White Blood Count 8.02 K/ul (4.8-10.8)
[2023-08-25 08:06] LABS: BUN Creatinine Ratio 14.7 (10-20); Calcium 9.1 mg/dl (8.6-10.3); Est GFR (African American) 118.9 ml/min; Est GFR (Non-African American) 102.5 ml/min; Magnesium 1.7 mg/dl (1.7-2.4); Phosphorus 4.4 mg/dl (2.5-4.9); Potassium 4.3 mmol/L (3.5-5.1)
--- NOTE | 2023-08-25 10:03 | Discharge Summary ---
Date of Service August 25, 2023 Admission HPI Per Admitting Provider Mr. Choi is a 57 year old male that presents via EMS for complaints of chest pain. He reports that his chest pain started last night. 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 Reported nausea as a contributing symptom. Patient underwent Coronary Angiography and placement of a JOSE RAFAEL to the PDA. PMH includes HTN and HLD. He has undergone a heart catheterization in [facility] as a result of palpitations over a decade ago, no stent was placed at that time. No known CAD. He is an active smoker. He smokes 1PPD x approximately 30 years. Denies alcohol use and recreational drug use; quit drinking three months ago. Heart alert called upon arrival to ED. EMS gave loading ASA dose and SL Nitro [place] x1 spray with Morphine 4 mg IV. Interventional Radiology at bedside for evaluation and went to bobcat driver/labor at 0959. CXR negative for acute cardiopulmonary disease. Troponin 79.6 pre bobcat driver/labor. Leukocytosis likely reactive 14. Slightly hypokalemic at 3.4. Pt will be admitted to the ICU post catheterization for further evaluation and management of his diffuse CAD. Will obtain ECHO, trend troponin, heart healthy diet, smoking cessation, fasting lipid panel and A1C. Started on Brilinta. Cards will add betablocker/ACEI and high dose statin. Cardiology rehab follow up. Admission Exam Per Admitting Provider Neuro: AAOx4, PERRLA, no aphagia, memory changes, CNII-XII grossly intact HEENT: head normocephalic, moist mucus membranes CV: S1/S2, (-) M/G/R, (-) edema, cap refill < 3 seconds. TR band radial approach. Resp: Lungs CTA in all bradley. On RA GI: Abdomen S/NT/ND, Ax4 bowel sounds, (-) CVA tenderness Musculoskeletal: 5/5 B/L UE strength, 5/5 B/L LE strength. No gait disturbance Skin: (-) rashes , (-) erythema. Psych: euthymic mood Principal Diagnosis ACS, s/p stent to RCA Discharge Exam GENERAL APPEARANCE: WD/WN M in no acute distress. HEENT: NC, AT. MMM. EOMI, clear conjunctiva NECK: Supple HEART: Normal rate and regular rhythm, normal S1/S1, no m/r/g LUNGS: CTAB No crackles or wheezes are heard. ABDOMEN: Soft, nontender, nondistended with + bowel sounds EXTREMITIES: No LE edema, moves extremities. NEUROLOGICAL: Awake, alert and oriented, moving all 4 extremities. answers appropriately, no facial asymmetry, speech fluent Skin: Warm and dry Discharge Data Allergies Allergy/AdvReac Type Severity Reaction Status Date / Time No Known Allergies Allergy Unverified 08/23/23 13:05 Consultations 08/23/23 10:26 Consult Rewrite Editor Routine 08/23/23 10:28 Consult Rewrite Editor Routine 08/24/23 09:49 Consult Cardiology Routine Procedures Performed Operation Date: 08/23/23 10:00 Actual Procedures p Cath, Left with Cors and Vent - Sha Moran MD p Aspiration/PCI w/JOSE RAFAEL for Stemi - Sha Moran MD s Cineradiography w/Routine Exam - Sha Moran MD Ordered Studies 08/23/23 09:43 CL Cath Imgs for PACS use only Stat Hospital Course (1) ACS (acute coronary syndrome): (2) Chest pain: (3) HTN (hypertension): (4) Tobacco use: (5) HLD (hyperlipidemia): Plan 57 yo M that presents via EMS for complaints of chest pain. Patient underwent Coronary Angiography and placement of a JOSE RAFAEL to the PDA distal RCA. Heart alert called upon arrival to ED. EMS gave loading ASA dose and SL Nitro [place] x1 spray with Morphine 4 mg IV. Pt was admitted to the ICU post catheterization for further evaluation and management of his diffuse CAD. ACS: S/p Successful PCI of distal RCA into right posterior AV branch with single drug-eluting stent (2.5 x 22 mm [place] MA: Postdilated with 2.75 NC) w/ Dr. Moran ECHO post cath -normal LV size, mild concentric LVH. LVEF 55 to 60%. Mild basal inferior, inferolateral hypokinesis. Normal LV size and function. Mild mitral regurg. Trace aortic regurg. Mild pulmonary hypertension, no prior studies for comparison. Cont. ASA, Brillinta - for at least 1 year, high dose statin (atorvastatin 80 daily), metoprolol (25 bid), lisinopril (20 daily) LDL 108 Hgb A1c 5.3% Cardiology - Dr. Moran consulted for further recommendations Cardiac rehab recommended after DC Pt is not from the area and currently does not have PCP or sap business analyst - plans to establish care Hypokalemia: replace and monitor Tobacco Use: Chronic Smoking cessation recommended HLD: Chronic Fasting lipid panel obtained, as above Total Time Total Time Spent Total Time Spent (In Minutes): 40 Discharge Plan Discharge Items Patient Disposition: Home - Self-Care Reason For Visit: CHEST PAIN Discharge Diagnosis: ACS, s/p stent to RCA Activity: Per Instructions section Non-emergency contact: Primary Care Provider and General Cargo Clerk Call non-emergency contact if: you have any medication questions and your symptoms worsen Follow-up/Referrals: PCP,NO [Primary Care Provider] - Diet: Heart Healthy Addtl Attending Provider Instructions: Follow up with your primary care doctor and sap business analyst within 1-2 weeks. Take medications as prescribed. Pending Studies at Discharge: No Stand-Alone Forms: My [employer], Smoking Cessation Medications and DC Order Prescriptions: New Brilinta 90 mg Tablet 90 mg PO BID Qty: 60 0RF aspirin 81 mg Tablet,Delayed Release (Dr/Ec) 81 mg PO QAM Qty: 30 0RF atorvastatin 80 mg tablet 80 mg PO HS Qty: 30 0RF lisinopril 20 mg Tablet 20 mg PO QAM Qty: 30 0RF metoprolol tartrate 25 mg Tablet 25 mg PO BID Qty: 60 0RF Discharge Orders: Discharge Order (Routine); Ordered 08/25/23 Ordered By: Bora Hoyos Admission Data Admit Date/Time: 08/23/23 10:28 Attending Provider: Bora Hoyos Admit Provider: Latia Martel Primary Care Provider: PCP,NO Other Providers: Mike Nguyen; Latia Martel; Nimesh Loomis; Mario Good; Rory Cortez; Artie Mcnamara; Adrian Polo; Musa Reyes; Natalee Be; Joanna Eason; Paul Manjarrez; Freedom Vences; Cecily Mora; Sha Moran
== END 2023-08-25 10:44 | disposition home or self-care (01) | DRG 322 ==
LOC: ED 09:31 → 1E 10:00 → SUATTDRO 10:28 → 1E 10:28 → 2S 08-24 13:08
DX: F17.210 Nicotine dependence, cigarettes, uncomplicated; I10 Essential (primary) hypertension; I21.4 Non-ST elevation (NSTEMI) myocardial infarction; E87.6 Hypokalemia; E78.5 Hyperlipidemia, unspecified; I25.10 Atherosclerotic heart disease of native coronary artery without angina pectoris; I25.82 Chronic total occlusion of coronary artery